=== PATIENT | male | born 1985 | race Caucasian/White ===

== ENCOUNTER 2018-07-11 09:07 | Emergency (ER) | payer OTHER ==
[~2018-07-11] VITALS: Ht 182.9 cm; Wt 113.6 kg
[2018-07-11 09:11] VITALS: BP 165/84
== END 2018-07-11 09:58 | disposition home or self-care (01) ==
LOC: ED 09:07
DX: T15.02XA Foreign body in cornea, left eye, initial encounter (principal); Z98.890 Other specified postprocedural states